=== PATIENT | male | born 1985 | race American Indian/Alaskan Native ===

== ENCOUNTER 2020-05-21 02:03 | Emergency (ER) | payer BC, MEDICAID ==
[2020-05-21 02:15] VITALS: BP 176/140; PULSE 120
[2020-05-21] MEDS ORDERED: Sodium Chloride 0.9% 1,000 ML IV ONE (02:30)
--- NOTE | 2020-05-21 02:38 | EDM.PDOC ---
ED HPI GENERAL MEDICAL PROBLEM - General Chief Complaint: Cardiovascular Problem Stated Complaint: DOESNT FEEL GOOD Time Seen by Provider: 05/21/20 02:25 Source of Information: Reports: Patient History Limitations: Reports: No Limitations - History of Present Illness INITIAL COMMENTS - FREE TEXT/NARRATIVE: This 34 yo male patient reports to the ED reporting his left arm and leg have felt numb since about 1300 yesterday afternoon. The patient reports he also took meth yesterday afternoon. The patient states that he came into the ED at this time due to his headache getting worse. The patient was in treatment, but relapsed. The patient reports he last did meth about 1 week ago. The patient reports he has been seen in the [facility] for his blood pressure, but the patient can not remember what blood pressure medications he is currently on ([facility] does not report medications to database). The patient reports he took 2 of his blood pressure medications before coming into the ED. The patient reports he also took Tylenol and ibuprofen for his headache, but continues to report his headache is getting worse. The patient reports he is on Wellbutrin, Hydralazine and some other medications. 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 [Unable to Verify Home Med List] 05/21/20 [History] Past Medical History - Past Health History Medical/Surgical History: Denies Medical/Surgical History Cardiovascular History: Reports: Hypertension Musculoskeletal History: Reports: Fracture Other Musculoskeletal History: chin Psychiatric History: Reports: Addiction, Anxiety - Infectious Disease History Infectious Disease History: Reports: Chicken Pox - Past Surgical History Cardiovascular Surgical History: Reports: None Social & Family History - Family History Family Medical History: Noncontributory - Tobacco Use Smoking Status *Q: Current Every Day Smoker Years of Tobacco use: 18 Packs/Tins Daily: 0.4 Second Hand Smoke Exposure: Yes - Recreational Drug Use Recreational Drug Use: Yes Drug Use in Last 12 Months: Yes Recreational Drug Type: Reports: Methamphetamine, Oxycodone - Living Situation & Occupation Living situation: Reports: with Family Occupation: Employed ED ROS GENERAL - Review of Systems Review Of Systems: Comprehensive ROS is negative, except as noted in HPI. ED EXAM, GENERAL - Physical Exam Exam: See Below Exam Limited By: No Limitations General Appearance: Alert, WD/WN, Anxious, Moderate Distress Eye Exam: Bilateral Eye: EOMI, Normal Inspection, PERRL Ears: Normal External Exam, Normal Canal, Hearing Grossly Normal, Normal TMs Nose: Normal Inspection, Normal Mucosa, No Blood Throat/Mouth: Normal Inspection, Normal Lips, Normal Teeth, Normal Gums, Normal Oropharynx, Normal Voice, No Airway Compromise Head: Atraumatic, Normocephalic Neck: Normal Inspection, Supple, Non-Tender, Full Range of Motion Respiratory/Chest: No Respiratory Distress, Lungs Clear, Normal Breath Sounds, No Accessory Muscle Use, Chest Non-Tender Cardiovascular: No Edema, No JVD, No Murmur, No Rub, Tachycardia GI/Abdominal: Normal Bowel Sounds, Soft, Non-Tender, No Organomegaly, No Distention, No Abnormal Bruit, No Mass (Male) Exam: Deferred Rectal (Males) Exam: Deferred Back Exam: Normal Inspection, Full Range of Motion, NT Extremities: Arm Pain (track dunlap to right AC) Neurological: Alert, Oriented, CN II-XII Intact, Normal Cognition, Normal Gait, Normal Reflexes, No Motor/Sensory Deficits Psychiatric: Normal Affect, Normal Mood Skin Exam: Warm, Dry, Intact, Normal Color, No Rash Lymphatic: No Adenopathy Course - Vital Signs Last Recorded V/S: Last Vital Signs Temp 36.8 C 05/21/20 02:06 Pulse 120 H 05/21/20 02:06 Resp 18 05/21/20 02:06 BP 176/140 H 05/21/20 02:06 Pulse Ox 94 L 05/21/20 02:06 - Orders/Labs/Meds Orders: Active Orders 24 hr Category Date Time Status EKG Documentation Completion [RC] STAT Care 05/21/20 02:14 Active DRUG SCREEN URINE BIORAD [URCHEM] Stat Lab 05/21/20 02:14 Ordered UA RFX DEREJE AND CULT IF INDIC [URIN] Urgent Lab 05/21/20 02:14 Ordered Sodium Chloride 0.9% [Normal Saline] 1,000 ml Med 05/21/20 02:30 Active IV .BOLUS Medication Orders Sodium Chloride (Normal Saline) 1,000 mls @ 500 mls/hr IV .BOLUS ONE Stop: 05/21/20 04:29 Last Admin: 05/21/20 02:35 Dose: 500 mls/hr Documented by: MARIA DEL ROSARIO Labs: Laboratory Tests 05/21/20 05/21/20 05/21/20 Range/Units 02:13 02:13 02:13 WBC 18.0 H (5.0-10.0) 10^3/uL RBC 5.80 (4.6-6.2) 10^6/uL Hgb 18.2 H (14.0-18.0) g/dL Hct 53.1 (40.0-54.0) % MCV 91.6 (80-100) fL MCH 31.4 (27.0-34.0) pg MCHC 34.3 (33.0-35.0) g/dL Plt Count 393 (150-450) 10^3/uL Neut % (Auto) 83.1 H (42.2-75.2) % Lymph % (Auto) 10.8 L (20.5-50.1) % [place] % (Auto) 5.5 (2-8) % Eos % (Auto) 0.2 L (1.0-3.0) % Baso % (Auto) 0.4 (0.0-1.0) % Sodium 143 (136-145) mmol/L Potassium 4.6 (3.5-5.1) mmol/L Chloride 104 (98-107) mmol/L Carbon Dioxide 31 (21-32) mmol/L Anion Gap 12.6 (7-13) mEq/L BUN 8 (7-18) mg/dL Creatinine 1.18 (0.70-1.30) mg/dL Est Cr Clr Drug Dosing 92.80 mL/min Estimated GFR (MDRD) > 60 BUN/Creatinine Ratio 6.8 (No establ ref range) Glucose 107 H (74-99) mg/dL Calcium 9.9 (8.5-10.1) mg/dL Total Bilirubin 0.3 (0.2-1.0) mg/dL AST 29 (15-37) U/L ALT 40 (16-63) U/L Alkaline Phosphatase 82 (46-116) U/L Troponin I < 0.017 (0.000-0.056) ng/mL Total Protein 8.4 H (6.4-8.2) g/dL Albumin 4.2 (3.4-5.0) g/dL Globulin 4.2 Albumin/Globulin Ratio 1.0 Salicylates < 2.8 L (2.8-20(Therapeutic)) mg/dL Acetaminophen 0 L (10-30 (Therapeutic)) ug/mL Ethyl Alcohol < 3 (0) mg/dL Meds: Medications Generic Name Dose Route Start Last Admin Trade Name Freq PRN Reason Stop Dose Admin Sodium Chloride 1,000 mls @ 500 mls/hr 05/21/20 02:30 05/21/20 02:35 Normal Saline IV 05/21/20 04:29 500 mls/hr .BOLUS ONE Administration Discontinued Medications Generic Name Dose Route Start Last Admin Trade Name Freq PRN Reason Stop Dose Admin Labetalol HCl 20 mg 05/21/20 02:47 05/21/20 02:53 Normodyne IVPUSH 05/21/20 02:48 20 mg ONETIME ONE Administration Labetalol HCl 20 mg 05/21/20 03:11 05/21/20 03:16 Normodyne IVPUSH 05/21/20 03:12 20 mg ONETIME ONE Administration Labetalol HCl 20 mg 05/21/20 03:56 05/21/20 04:01 Normodyne IVPUSH 05/21/20 03:57 20 mg ONETIME ONE Administration - Re-Assessments/Exams Free Text/Narrative Re-Assessment/Exam: 05/21/20 04:07 The patient reports his symptoms are improving with lowering his blood pressure. The patient was given 3 doses of Labetalol (20 mg) IV while in the ED. Departure - Departure Time of Disposition: 04:28 Disposition: Home, Self-Care 01 Condition: Fair Clinical Impression: Methamphetamine use Hypertension Qualifiers: Hypertension type: unspecified secondary hypertension Qualified Code(s): I15.9 - Secondary hypertension, unspecified; I15 - Secondary hypertension Instructions: Hypertension, Adult, [id number], Stimulant Use Disorder- Methamphetamines Forms: ED Department Discharge Care Plan Goals: The patient was advised of the examination, lab and EKG results during the visit. The patient was given IV fluids and 3 doses of IV Lebetalol (20 mg) while in the ED. The patient was advised to avoid methamphetamine use. The patient should take his medications as prescribed and follow-up with his primary care facility. If the patient has any additional symptoms or concerns, the patient should either return to the emergency department or visit his primary care facility. Sepsis Event Note (ED) - Evaluation Sepsis Screening Result: No Definite Risk - Focused Exam Vital Signs: Vital Signs Temp Pulse Resp BP Pulse Ox 05/21/20 02:06 36.8 C 120 H 18 176/140 H 94 L - My Orders Last 24 Hours: My Active Orders 05/21/20 02:14 EKG Documentation Completion [RC] STAT DRUG SCREEN URINE BIORAD [URCHEM] Stat UA RFX DEREJE AND CULT IF INDIC [URIN] Urgent 05/21/20 02:30 Sodium Chloride 0.9% [Normal Saline] 1,000 ml IV .BOLUS - Assessment/Plan Last 24 Hours: My Active Orders 05/21/20 02:14 EKG Documentation Completion [RC] STAT DRUG SCREEN URINE BIORAD [URCHEM] Stat UA RFX DEREJE AND CULT IF INDIC [URIN] Urgent 05/21/20 02:30 Sodium Chloride 0.9% [Normal Saline] 1,000 ml IV .BOLUS
[2020-05-21 02:41] LABS: ANION GAP 12.6 mEq/L (7-13); CHLORIDE,CL 104 mmol/L (98-107); SODIUM,NA 143 mmol/L (136-145)
[2020-05-21 02:42] LABS: ACETAMINOPHEN 0 ug/mL (10-30 (Therapeutic))
[2020-05-21] MEDS ORDERED: Labetalol 20 MG/4 ML Syringe IVPUSH ONE ×3 (02:47→03:56)
== END 2020-05-21 04:32 | disposition home or self-care (01) ==
LOC: DL.ED 02:03
DX: I15.9 Secondary hypertension, unspecified (principal); F15.90 Other stimulant use, unspecified, uncomplicated; F17.210 Nicotine dependence, cigarettes, uncomplicated
CPT/HCPCS: 36415; 80053; 80307; 84484; 85025; 93005; 96374; 96376; 99284; J3490; J7030

== ENCOUNTER 2021-11-13 05:53 | Emergency (ER) | payer MEDICAID ==
[2021-11-13] MEDS ORDERED: Ketorolac 30 MG/ML SDV IM ONE (06:09)
[2021-11-13] MEDS ORDERED: Orphenadrine 60 MG/2 ML Inj IM ONE (06:09)
--- NOTE | 2021-11-13 06:15 | EDM.PDOC ---
ED HPI GENERAL MEDICAL PROBLEM - General Chief Complaint: Upper Extremity Injury/Pain Stated Complaint: PAIN SHOULDER BLADE, AND BACK OF HEAD Time Seen by Provider: 11/13/21 06:02 Source of Information: Reports: Patient History Limitations: Reports: No Limitations - History of Present Illness INITIAL COMMENTS - FREE TEXT/NARRATIVE: This 36 yo male patient reports to the ED with left posterior shoulder pain that radiates up to his neck. The patient reports his symptoms started yesterday morning at 1100 and have continued. The patient reports he took aspirin at about midnight. The patient also reports he took "opioids" at around 2300 last night with no symptom relief. Duration: Day(s):, Constant, Getting Worse Location: Reports: Neck (left posterior neck), Upper Extremity, Left Quality: Reports: Ache, Sharp Severity: Moderate Improves with: Reports: None Worsens with: Reports: None Context: Reports: Other Associated Symptoms: Reports: No Other Symptoms - Related Data Allergies Allergy/AdvReac Type Severity Reaction Status Date / Time No Known Allergies Allergy Verified 11/13/21 06:04 Home Meds: Home Meds Losartan [Cozaar] 50 mg PO DAILY 11/13/21 [History] hydrOXYzine pamoate [Vistaril] 50 mg PO Q6H 11/13/21 [History] Past Medical History - Past Health History Medical/Surgical History: Denies Medical/Surgical History Cardiovascular History: Reports: Hypertension Musculoskeletal History: Reports: Fracture Other Musculoskeletal History: chin Psychiatric History: Reports: Addiction, Anxiety - Infectious Disease History Infectious Disease History: Reports: Chicken Pox, Hepatitis C - Past Surgical History HEENT Surgical History: Reports: Other (See Below) Other HEENT Surgeries/Procedures: jaw fx repair Cardiovascular Surgical History: Reports: None Musculoskeletal Surgical History: Reports: Other (See Below) Other Musculoskeletal Surgeries/Procedures:: two screws placed Social & Family History - Family History Family Medical History: No Pertinent Family History - Tobacco Use Tobacco Use Status *Q: Current Every Day Tobacco User Years of Tobacco use: 10 Packs/Tins Daily: 0.5 Used Tobacco, but Quit: No Second Hand Smoke Exposure: Yes - Caffeine Use Caffeine Use: Reports: Soda - Recreational Drug Use Recreational Drug Use: Yes Drug Use in Last 12 Months: Yes Recreational Drug Type: Reports: Other (see below) Other Recreational Drug Type: non rx opiates - Living Situation & Occupation Living situation: Reports: with Family Occupation: Employed Review of Systems - Review of Systems Review Of Systems: Comprehensive ROS is negative, except as noted in HPI. ED EXAM, GENERAL - Physical Exam Exam: See Below Exam Limited By: No Limitations General Appearance: Alert, WD/WN, Anxious, Moderate Distress Eye Exam: Bilateral Eye: Other (Pupils were dialated) Ears: Normal External Exam, Normal Canal, Hearing Grossly Normal, Normal TMs Nose: Normal Inspection, Normal Mucosa, No Blood Throat/Mouth: Normal Inspection, Normal Lips, Normal Teeth, Normal Gums, Normal Oropharynx, Normal Voice, No Airway Compromise Head: Atraumatic, Normocephalic Neck: Tender Lateral Respiratory/Chest: No Respiratory Distress, Lungs Clear, Normal Breath Sounds, No Accessory Muscle Use, Chest Non-Tender Cardiovascular: Normal Peripheral Pulses, Regular Rate, Rhythm, No Edema, No Gallop, No JVD, No Murmur, No Rub GI/Abdominal: Normal Bowel Sounds, Soft, Non-Tender, No Organomegaly, No Distention, No Abnormal Bruit, No Mass (Male) Exam: Deferred Rectal (Males) Exam: Deferred Back Exam: Normal Inspection, Full Range of Motion, NT Extremities: Arm Pain (left posterior shoulder pain (near scapula) with radiation to his left posterior neck) Neurological: Alert Psychiatric: Normal Affect, Anxious Skin Exam: Warm, Dry, Intact, Normal Color, No Rash Lymphatic: No Adenopathy Course - Orders/Labs/Meds Meds: Medications Discontinued Medications Generic Name Dose Route Start Last Admin Trade Name Freq PRN Reason Stop Dose Admin Ketorolac Tromethamine 30 mg 11/13/21 06:09 Ketorolac 30 Mg/Ml Sdv IM 11/13/21 06:10 ONETIME ONE Orphenadrine Citrate 60 mg 11/13/21 06:09 Orphenadrine 60 Mg/2 Ml Inj IM 11/13/21 06:10 ONETIME ONE Departure - Departure Time of Disposition: 06:16 Disposition: Home, Self-Care 01 Condition: Fair Clinical Impression: Muscle strain of shoulder region Qualifiers: Encounter type: initial encounter Laterality: left Qualified Code(s): S46.912A - Strain of unspecified muscle, fascia and tendon at shoulder and upper arm level, left arm, initial encounter - Discharge Information *PRESCRIPTION DRUG MONITORING PROGRAM REVIEWED*: Not Applicable *COPY OF PRESCRIPTION DRUG MONITORING REPORT IN PATIENT MINERVA: Not Applicable Instructions: Muscle Strain, [id number] Care Plan Goals: The patient was advised of the examination results during the visit. The patient was given an injection of Toradol and Norflex during the visit. The patient was discharged with a script for Toradol (10 mg) #20 to take 1 by mouth every 6 hours and Flexeril (5 mg) #10 to take 1 by mouth at bedtime as needed. The patient was encouraged to use massage and heat to help relieve pain. If the patient has any additional symptoms or concerns, the patient should visit his primary care facility or return to the emergency department.
[2021-11-13 06:37] VITALS: BP 157/118; PULSE 76
== END 2021-11-13 06:34 | disposition home or self-care (01) ==
LOC: DL.ED 05:53
DX: S46.912A Strain of unspecified muscle, fascia and tendon at shoulder and upper arm level, left arm, initial encounter (principal); I10 Essential (primary) hypertension; Z79.899 Other long term (current) drug therapy; Z72.0 Tobacco use
CPT/HCPCS: 96372; 99283; J1885; J2360

== ENCOUNTER 2021-11-18 07:38 | Emergency (ER) | payer MEDICAID ==
[2021-11-18 07:59] VITALS: BP 151/103; PULSE 82
[2021-11-18] MEDS ORDERED: Ibuprofen 600 MG Tab PO ONE (08:14)
--- NOTE | 2021-11-18 08:23 | EDM.PDOC ---
ED HPI GENERAL MEDICAL PROBLEM - General Chief Complaint: Upper Extremity Injury/Pain Stated Complaint: AMBULANCE Time Seen by Provider: 11/18/21 08:05 Source of Information: Reports: Patient History Limitations: Reports: No Limitations - History of Present Illness INITIAL COMMENTS - FREE TEXT/NARRATIVE: This 36 yo male patient was brought to the ED by [facility] due to left posterior shoulder pain. The patient was seen for the same symptoms on 11/13/21. The patient reports he has been taking his medications as prescribed, but has not followed up with his primary care facility. The patient reports he took Fentanyl (got off the streets) and whiskey at about midnight with little to no symptom relief. The patient has not taken any over the counter medications for temporary symptom relief. 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: whiskey/street fentanyl Left Shoulder Pain Score (Numeric/FACES): 8 - Related Data Allergies Allergy/AdvReac Type Severity Reaction Status Date / Time No Known Allergies Allergy Verified 11/18/21 07:59 Home Meds: Home Meds Losartan [Cozaar] 50 mg PO DAILY 11/13/21 [History] hydrOXYzine pamoate [Vistaril] 50 mg PO Q6H 11/13/21 [History] Past Medical History - Past Health History Medical/Surgical History: Denies Medical/Surgical History Cardiovascular History: Reports: Hypertension Musculoskeletal History: Reports: Fracture Other Musculoskeletal History: chin Psychiatric History: Reports: Addiction, Anxiety - Infectious Disease History Infectious Disease History: Reports: Chicken Pox, Hepatitis C - Past Surgical History HEENT Surgical History: Reports: Other (See Below) Other HEENT Surgeries/Procedures: jaw fx repair Cardiovascular Surgical History: Reports: None Musculoskeletal Surgical History: Reports: Other (See Below) Other Musculoskeletal Surgeries/Procedures:: two screws placed Social & Family History - Family History Family Medical History: No Pertinent Family History - Caffeine Use Caffeine Use: Reports: Soda - Living Situation & Occupation Living situation: Reports: with Family Occupation: Employed Review of Systems - Review of Systems Review Of Systems: Comprehensive ROS is negative, except as noted in HPI. ED EXAM, GENERAL - Physical Exam Exam: See Below Exam Limited By: No Limitations General Appearance: Alert, WD/WN, Moderate Distress Eye Exam: Bilateral Eye: EOMI, Normal Inspection, PERRL Ears: Normal External Exam, Normal Canal, Hearing Grossly Normal, Normal TMs Nose: Normal Inspection, Normal Mucosa, No Blood Throat/Mouth: Normal Inspection, Normal Lips, Normal Teeth, Normal Gums, Normal Oropharynx, Normal Voice, No Airway Compromise Head: Atraumatic, Normocephalic Neck: Normal Inspection, Supple, Non-Tender, Full Range of Motion Respiratory/Chest: No Respiratory Distress, Lungs Clear, Normal Breath Sounds, No Accessory Muscle Use, Chest Non-Tender Cardiovascular: Normal Peripheral Pulses, Regular Rate, Rhythm, No Edema, No Gallop, No JVD, No Murmur, No Rub GI/Abdominal: Normal Bowel Sounds, Soft, Non-Tender, No Organomegaly, No Distention, No Abnormal Bruit, No Mass (Male) Exam: Deferred Rectal (Males) Exam: Deferred Extremities: Arm Pain (left posterior shoulder pain) Neurological: Alert, Oriented, CN II-XII Intact, Normal Cognition, Normal Gait Psychiatric: Normal Affect, Normal Mood Skin Exam: Warm, Dry, Intact, Normal Color, No Rash Lymphatic: No Adenopathy Course - Vital Signs Last Recorded V/S: Last Vital Signs Temp 97.6 F 11/18/21 07:53 Pulse 82 11/18/21 07:53 Resp 20 11/18/21 07:53 BP 151/103 H 11/18/21 07:53 Pulse Ox 95 11/18/21 07:53 - Orders/Labs/Meds Orders: Active Orders 24 hr Category Date Time Status Ibuprofen [Motrin] Med 11/18/21 08:14 Once 600 mg PO ONETIME ONE Departure - Departure Time of Disposition: 08:19 Disposition: Home, Self-Care 01 Condition: Fair Clinical Impression: Muscle strain of shoulder region Qualifiers: Encounter type: initial encounter Laterality: left Qualified Code(s): S46.912A - Strain of unspecified muscle, fascia and tendon at shoulder and upper arm level, left arm, initial encounter - Discharge Information *PRESCRIPTION DRUG MONITORING PROGRAM REVIEWED*: Not Applicable *COPY OF PRESCRIPTION DRUG MONITORING REPORT IN PATIENT MINERVA: Not Applicable Instructions: Muscle Strain, [id number] Care Plan Goals: The patient was advised of the examination results during the visit. The patient was given an oral dose of Ibuprofen while in the ED. The patient was advised to avoid using medications not prescribed to him (street acquired Fentanyl). The patient should be using Tylenol and ibuprofen as directed. The patient was also encouraged to do stretching exercises and roll his shoulder blade with a tennis ball. If the patient has any additional symptoms or concerns, the patient should either return to the emergency department or visit his primary care facility. Sepsis Event Note (ED) - Evaluation Sepsis Screening Result: No Definite Risk - Focused Exam Vital Signs: Vital Signs Temp Pulse Resp BP Pulse Ox 11/18/21 07:53 97.6 F 82 20 151/103 H 95 - My Orders Last 24 Hours: My Active Orders 11/18/21 08:14 Ibuprofen [Motrin] 600 mg PO ONETIME ONE - Assessment/Plan Last 24 Hours: My Active Orders 11/18/21 08:14 Ibuprofen [Motrin] 600 mg PO ONETIME ONE
== END 2021-11-18 08:31 | disposition home or self-care (01) ==
LOC: DL.ED 07:38
DX: S46.912A Strain of unspecified muscle, fascia and tendon at shoulder and upper arm level, left arm, initial encounter (principal); I10 Essential (primary) hypertension; Z79.899 Other long term (current) drug therapy
CPT/HCPCS: 99283; A9270-GY